=== PATIENT | female | born 1985 | race Caucasian/White ===

== ENCOUNTER 2022-08-26 14:25 | Emergency (ER) | payer MEDICAID ==
[~2022-08-26] VITALS: Ht 160 cm; Wt 90.7 kg
[2022-08-26 14:35] VITALS: BP_SYST 126; PULSE 112; RESP 18; TEMP 97.9; O2SAT 100
[2022-08-26] MEDS ORDERED: KETOROLAC TROMETHAMINE 30 MG VIAL IVP ONE (16:00)
[2022-08-26] MEDS ORDERED: ONDANSETRON HCL 4 MG/2 ML VIAL IVP ONE (16:00)
[2022-08-26] MEDS ORDERED: NACL 0.9% 1,000 ML IV ONE (16:00)
[2022-08-26 16:27] LABS: BILIRUBIN,URINE NEGATIVE (NEGATIVE); BLOOD, URINE NEGATIVE (NEGATIVE); CLARITY/URINE CLEAR (CLEAR); COLOR,URINE YELLOW (YELLOW); GLUCOSE,URINE NEGATIVE (NEGATIVE); KETONES,URINE NEGATIVE (NEGATIVE); LEUKOCYTE ESTERASE ,URINE NEGATIVE (NEGATIVE); NITRITE, URINE NEGATIVE (NEGATIVE); PH,URINE 5.5 (5.0-8.0); PROTEIN URINE NEGATIVE (NEGATIVE); UROBILINOGEN,URINE 0.2 (0.2-1.0)
[2022-08-26 16:31] LABS: BASOPHILS % (AUTO) 0.2 % (0.0-2.0); EOSINOPHILS % (AUTO) 0.4 % (0.0-4.0); HEMATOCRIT 40.4 % (36-48); HEMOGLOBIN 13.3 g/dL (12.0-16.0); LYMPHOCYTES # (AUTO) 0.3 K/uL (1.0-5.5); LYMPHOCYTES % (AUTO) 2.9 % (20.5-51.5); MEAN CORPUSCULAR HEMOGLOBIN 30 pg (27-31); MEAN CORPUSCULAR HGB CONC 33 % (32-36); MEAN CORPUSCULAR VOLUME 90 fL (79.0-98.0); MONOCYTES # (AUTO) 0.4 K/uL (0.0-1.0); MONOCYTES % (AUTO) 3.7 % (1.7-9.3); NEUTROPHILS # (AUTO) 9.9 K/uL (1.8-7.7); NEUTROPHILS % (AUTO) 92.8 % (40.0-70.0); PLATELET COUNT (AUTO) 330 K/uL (130-430); RED BLOOD CELL COUNT(AUTO) 4.52 MIL/uL (4.2-6.2); RED CELL DISTRIBUTION WIDTH 12.6 % (9.0-15.0); WHITE BLOOD COUNT (AUTO) 10.7 K/uL (4.8-10.8)
[2022-08-26 16:44] LABS: CALCIUM 8.2 mg/dL (8.4-11.0); CREATININE 0.83 mg/dL (0.55-1.30)
[2022-08-26 16:50] LABS: ALBUMIN 3.6 g/dL (3.4-4.8); TOTAL BILIRUBIN 0.5 mg/dL (0.0-1.0)
[2022-08-26] MEDS ORDERED: ONDA-8 TL (17:10)
[2022-08-26 17:58] VITALS: BP_SYST 109; PULSE 99; RESP 21; TEMP 97.8; O2SAT 100
== END 2022-08-26 17:58 | disposition home or self-care (01) ==
LOC: SED 14:25
DX: A08.4 Viral intestinal infection, unspecified (principal); R53.1 Weakness; R11.10 Vomiting, unspecified; R05.9 Cough, unspecified; F15.90 Other stimulant use, unspecified, uncomplicated; F17.210 Nicotine dependence, cigarettes, uncomplicated; Z88.1 Allergy status to other antibiotic agents; Z79.899 Other long term (current) drug therapy; Z20.822 Contact with and (suspected) exposure to COVID-19
CPT/HCPCS: 99284; 96374; 96361; 96375; 87426; 80053; 85025; 36415; 81025; 81003; 87804 ×2; J1885; J2405; J7030